=== PATIENT | male | born 1950 | race African-American/Black ===

== ENCOUNTER 2020-07-12 18:59 | Inpatient (IN) | payer OTHER ==
--- NOTE | 2020-07-12 19:29 | BHS.RME ---
Substance Use & Tx History - Substance Use History Alcohol Substance amount: 2 can of beer Frequency of use: More than 3 times per week Substance route: Oral Date of Last Use: 06/28/20 - Last Treatment Where was last treatment: Rehab Physical/Psych/Mental Status - Behavior Eye Contact: Normal - Cooperativeness Cooperativeness: Cooperative - Thinking Thought Processes: Logical - Physical Health Problems Is patient presently having any pain?: No Does patient presently have any injuries (include location): No Does patient currently have a fever: No Is patient : No CIWA Nausea/Vomitin-No Nausea/No Vomiting Muscle Tremors: None Anxiety: 0-No Anxiety, at Ease Agitation: 0-Normal Activity Paroxysmal Sweats: No Perspiration Orientation: 0-Oriented Tacttile Disturbances: 0-None Auditory Disturbances: 0-None Visual Disturbances: 0-None Treatment Recommendation - Level of Care Level of Care: Opioid Treatment Program (OTP) (Rehab. SARS -COV-2 done on indicates not detected)
[2020-07-12 19:34] VITALS: BMI 23.8
--- NOTE | 2020-07-12 19:39 | HP ---
CIWA Score Nausea/Vomitin-No Nausea/No Vomiting Muscle Tremors: None Anxiety: 0-No Anxiety, at Ease Agitation: 0-Normal Activity Paroxysmal Sweats: No Perspiration Orientation: 0-Oriented Tacttile Disturbances: 0-None Auditory Disturbances: 0-None Visual Disturbances: 0-None - Admission Criteria OASAS Guidelines: Admission for Medically Managed Detox: Requires at least one of the followin. CIWA greater than 12 2. Seizures within the past 24 hours 3. Delirium tremens within the past 24 hours 4. Hallucinations within the past 24 hours 5. Acute intervention needed for co occurring medical disorder 6. Acute intervention needed for co occurring psychiatric disorder 7. Severe withdrawal that cannot be handled at a lower level of care (continued vomiting, continued diarrhea, abnormal vital signs) requiring intravenous medication and/or fluids 8. Admitting History and Physical - Admission History of Present Illness: Patient is a 69 y.o. M PMHx HTN, liver cirrhosis, partial prostatectomy, treated Hep C presenting to [facility] for rehab. Patient was examined in the room and is in no acute distress. Patients most recent substance use consists of alcohol 2 beers last week but had not drank for years prior. History Source: Patient Limitations to Obtaining History: No Limitations - Past Medical History PROCEDURES RN: No: Seizure Cardiovascular: Yes: HTN. No: Hyperlipdemia Pulmonary: No: Asthma Gastrointestinal: No: GERD, GI Bleed Hepatobiliary: Yes: Cirrhosis, Hepatitis C (treated) Infectious Disease: No: HIV, STD's, Tuberculosis Psych: No: Anxiety, Bipolar - Past Surgical History Past Surgical History: Yes: Prostatectomy - Smoking History Have you smoked in the past 12 months: No - Alcohol/Substance Use Hx Alcohol Use: No History of Substance Use: reports: None - Social History Usual Living Arrangement: Yes: Alone ADL: Independent History of Recent Travel: No Admission ROS [facility] Exam Limitations: No Limitations - Ebola screening Have you traveled outside of the country in the last 21 days: No Have you had contact with anyone from an Ebola affected area: No Have you been sick,other than usual withdrawal symptoms: No Do you have a fever: No - Review of Systems Constitutional: No Symptoms Reported EENT: denies: Blurred Vision, Double Vision Respiratory: denies: Cough, Shortness of Breath Cardiac: denies: Chest Pain, Lightheadedness GI: denies: Constipated, Diarrhea, Nausea, Vomiting : reports: Incontinence. denies: Burning, Dysuria Musculoskeletal: denies: Muscle Pain, Muscle Weakness Neuro: denies: Headache, Dizziness Hematology: denies: Easy Bleeding Psychiatric: reports: No Sypmtoms Reported, Judgement Intact, Mood/Affect Appropiate, Orientated x3 Patient History - Smoking Cessation Smoking history: Former smoker Have you smoked in the past 12 months: No Initiated information on smoking cessation: Yes 'Breaking Loose' booklet given: 07/12/20 Admission Physical Exam [facility] - Vital Signs Vital Signs: Vital Signs - 24 hr 07/12/20 19:32 Temperature 97.3 F L Pulse Rate 56 L Respiratory 17 Rate Blood Pressure 141/86 - Physical General Appearance: Yes: Within Normal Limits, No Apparent Distress, Nourished, Appropriately Dressed Respiratory: Yes: Within Normal Limits, Lungs Clear, Normal Breath Sounds, No Respiratory Distress, No Accessory Muscle Use Cardiology: Yes: Within Normal Limits, Regular Rhythm, Regular Rate. No: JVD, Murmur Abdominal: Yes: Within Normal Limits, Normal Bowel Sounds, Non Tender, Flat, Soft. No: Tenderness Back: Yes: Within Normal Limits, Normal Inspection. No: CVA Tenderness Extremities: Yes: Within Normal Limits, Normal Inspection, Normal Range of Motion, Non-Tender Neurological: Yes: Within Normal Limits, Fully Oriented, Alert, Normal Mood/Affect, Normal Response Integumentary: Yes: Within Normal Limits, Normal Color, Dry, Warm - Diagnostic (1) Hypertension Current Visit: Yes Status: Acute (2) Cirrhosis of liver Current Visit: Yes Status: Acute (3) Incontinence Current Visit: Yes Status: Acute Cleared for Admission [facility] - Detox or Rehab [facility] Level of Care: Medically Managed Detox Regimen/Protocol: Not Applicable Claeared for Rehab Admission: Yes Breathalyzer - Breathalyzer Breathalyzer: 0 Vital Signs - Vital Signs Vital signs refused: No Temperature: 97.3 F Pulse Rate: 56 Respiratory Rate: 17 Blood Pressure: 141/86 - Height Height: 1.65 m - Weight Weight: 64.864 kg - BMI Body Mass Index (BMI): 23.8 Urine Drug Screen - Test Device Lot number: [id number] Expiration date: 05/29/22 - Control Is test valid?: Yes - Results Drug screen NEGATIVE: No Urine drug screen results: BZO-Benzodiazepines Inpatient Rehab Admission - Rehab Decision to Admit Inpatient rehab admission?: Yes - Initial Determination Are CD services needed?: Yes Free of communicable disease: Yes Not in need of hospitalization: Yes - Rehab Admission Criteria Previous failed treatment: Yes Poor recovery environment: Yes Comorbidities: Yes Lacks judgement: Yes Patient is meeting Inpatient Rehab admission criteria:: Yes
--- OUTSIDE RECORDS SUMMARY | 2020-07-12 19:43 | XMS ---
:1950 Author Organization [facility] Support Name Relationship Address Phone UE Unavailable Unavailable Unavailable BEATRIS DAMIAN (PUTTY TINTER MAKER) OTHER RELATIONSHIP [address] [place] [address] Re-disclosure Warning The records that you are about to access may contain information from federally- assisted alcohol or drug abuse programs. If such information is present, then the following federally mandated warning applies: This information has been disclosed to you from records protected by federal confidentiality rules (42 CFR part 2). The federal rules prohibit you from making any further disclosure of this information unless further disclosure is expressly permitted by the written consent of the person to whom it pertains or as otherwise permitted by 42 CFR part 2. A general authorization for the release of medical or other information is NOT sufficient for this purpose. The Federal rules restrict any use of the information to criminally investigate or prosecute any alcohol or drug abuse patient.The records that you are about to access may contain highly sensitive health information, the redisclosure of which is protected by Article 27-F of the [facility] Public Health law. If you continue you may haveaccess to information: Regarding HIV / AIDS; Provided by facilities licensed or operated by the [facility] Office of Mental Health; or Provided by the [facility] Office for People With Developmental Disabilities. If such information is present, then the following [facility] mandated warning applies: This information has been disclosed to you from confidential records which are protected by state law. State law prohibits you from making any further disclosure of this information without the specific written consent of the person to whom it pertains, or as otherwise permitted by law. Any unauthorized further disclosure in violation of state law may result in a fine or nursing home sentence or both. A general authorization for the release of medical or other information is NOT sufficient authorization for further disclosure. Insurance Providers Payer name Policy type Policy ID Covered Covered republican's Policy P cosme / Coverage republican ID relationship to [place] Inf ormation type [place] [id number] SP [id number] MEDICARE [id number] SP [id number] 31 1 Results ID Date Data Source [id number] 07/03/2020 01:15:00 PM EDT [facility] Name Value Range Interpretation Description Data Sup porting Code Source(s) Document(s ) SARS [facility] coronavirus 2 RNA This lab was ordered by [facility] ct [facility] and reported by [facility]. ID Date Data Source [id number] 06/14/2020 07:38:00 PM EDT [facility] Name Value Range Interpretation Code Description Data Jamee rce(s) Supporting Document(s ) Overall [facility] Result: This lab was ordered by [facility] and reported by [facility]. Procedure
[2020-07-12] MEDS ORDERED: MAGNESIUM CITRATE 300 ML BOTTLE PO PRN (19:44)
[2020-07-12] MEDS ORDERED: P-EPHED 60MG/TRIPROLIDI 2.5MG TABLET PO PRN (19:44)
[2020-07-12] MEDS ORDERED: guaiFENesin 200 MG/10 ML 10 ML UNIT-DOSE CUPS PO PRN (19:44)
[2020-07-12] MEDS ORDERED: MAGNESIUM HYDROX 2400MG/30ML ORAL SUSPENSION 30 ML CUP PO PRN (19:44)
[2020-07-12] MEDS ORDERED: MAG HYDROX/AL HYDROX/SIMETH 30 ML UNIT-DOSE CUP PO PRN (19:44)
[2020-07-12] MEDS ORDERED: NICOTINE POLACRILEX 2 MG GUM BC PRN (19:44)
[2020-07-12] MEDS ORDERED: LOPERAMIDE HCL 2 MG CAPSULE PO PRN (19:44)
--- OUTSIDE RECORDS SUMMARY | 2020-07-12 20:40 | XMS ---
:1950 Author Organization [facility] Support Name Relationship Address Phone UE Unavailable Unavailable Unavailable DAMIAN, BEATRIS (ENVIRONMENTAL MARKETER) OTHER RELATIONSHIP [address] [place] [address] Re-disclosure Warning The records that you are [...] is protected by Article 27-F of the [facility] Public Health law. If you continue you may haveaccess to information: Regarding HIV / AIDS; Provided by facilities licensed or operated by the [facility] Office of Mental Health; or Provided by the [facility] Office for People With Developmental Disabilities. If such information is present, then the following [facility] mandated warning applies: This information has been [...] law may result in a fine or detention sentence or both. A general authorization for the release of medical or other information is NOT sufficient authorization for further disclosure. Insurance Providers Payer name Policy type Policy ID Covered Covered green party's Policy P cosme / Coverage green party ID relationship to [place] Inf ormation type [place] [id number] SP [id number] MEDICARE [id number] SP [id number] 31 1 Results ID Date Data Source [id number] 07/03/2020 01:15:00 PM EDT [facility] Name Value Range Interpretation Description Data Sup porting Code Source(s) Document(s ) SARS [facility] coronavirus 2 RNA This lab was ordered by [facility] Ac ct [facility] and reported by [facility]. ID Date Data Source [id number] 06/14/2020 07:38:00 PM EDT [facility] Name Value Range Interpretation Code Description Data Jamee rce(s) Supporting Document(s ) Overall [facility] Result: This lab was ordered by [facility] and reported by [facility]. Procedure
[2020-07-12] MEDS ORDERED: TUBERCULIN PPD 5 TU/0.1ML VIAL ID ONE (20:41)
--- NOTE | 2020-07-12 21:05 | PN ---
BHS Progress Note Note: EKG notes NSR , septal infarct, age undetermined, ST & Marked T-wave abnormality , consider anterolateral ischemia . Pt is asymptomatic . Vital Signs - 24 hr 07/12/20 07/12/20 07/12/20 19:32 19:44 20:03 Temperature 97.3 F L 97.3 F L 97.3 F L Pulse Rate 56 L 56 L 56 L Respiratory 17 17 17 Rate Blood Pressure 141/86 141/86 141/86 Per MR , pt had cardiac evaluation @ [facility] telemetry ECHO 07/05/2020 : LVH with normal systolic function , EF 65-70 % grade 2 diastolic dysfunction , mild MR CXR 07/04/2020 Normal Myocardial perfusion scan 07/06/2020 : normal EKG on admission 07/04/2020 : Sinus rhythm , T- inversion leads II, III, aVF , V4-6 , troponin 0.01, Serial EKGs no new changes , Troponin trended 0.01-0.01-0.06-0.05 . Nuclear stress test normal. Advised to f/up w/ PMD and cardiology upon d/c .
[2020-07-12] MEDS: THIAMINE HCL 100 MG TABLET (FP) PO SCH (21:47)
[2020-07-12] MEDS: MELATONIN 5 MG TABLETS PO SCH (21:47)
[2020-07-12] MEDS: hydrOXYzine PAMOATE 25 MG CAPSULE (FP) PO SCH (21:47)
[2020-07-13] MEDS: hydrOXYzine PAMOATE 25 MG CAPSULE (FP) PO SCH ×5 (06:51→21:42)
[2020-07-13] MEDS: PRENATAL VITAMINS W/ FOLIC ACID TABLET (FP) PO SCH (10:01)
[2020-07-13] MEDS: NICOTINE 7 MG/24 HOURS TOPICAL PATCH TD SCH (10:02)
[2020-07-13 10:43] LABS: HEMATOCRIT 39.1 % (35.4-49); HEMOGLOBIN 12.8 GM/dL (11.7-16.9); MCH 33.6 pg (25.7-33.7); MCHC 32.7 g/dl (32.0-35.9); MEAN CELL VOLUME 102.5 fl (80-96); MEAN PLT VOLUME 11.5 fl (7.5-11.1); PLATELET COUNT 122 K/MM3 (134-434); RBC 3.82 M/mm3 (4.00-5.60); RDW 13.8 % (11.9-15.9); WHITE BLOOD COUNT 8.2 K/mm3 (4.0-10.0)
[2020-07-13] MEDS: amLODIPine BESYLATE 5 MG TABLET (FP) PO SCH (10:45)
[2020-07-13 10:55] LABS: ALBUMIN 3.2 g/dl (3.4-5.0); BILIRUBIN,TOTAL 0.6 mg/dL (0.2-1); BLOOD UREA NITROGEN 18.1 mg/dL (7-18); CALCIUM 8.8 mg/dL (8.5-10.1); CREATININE 1.3 mg/dL (0.55-1.3); POTASSIUM 4.4 mmol/L (3.5-5.1); TOT PROT 7.5 g/dl (6.4-8.2)
[2020-07-13 11:04] LABS: SICKLE CELL SCREEN NEGATIVE (NEGATIVE)
--- NOTE | 2020-07-13 12:43 | EKG ---
Test Reason : Blood Pressure : / mmHG Vent. Rate : 067 BPM Atrial Rate : 067 BPM P-R Int : 138 ms QRS Dur : 086 ms QT Int : 414 ms P-R-T Axes : 046 019 -80 degrees QTc Int : 437 ms NORMAL SINUS RHYTHM SEPTAL INFARCT , AGE UNDETERMINED CLINICAL CORRELATION IS RECOMMENDED NO PREVIOUS ECGS AVAILABLE Confirmed by DESTINY KRUEGER MD ([id number]) on 07/13/2020 12:43:28 PM Referred By: Confirmed By:DESTINY KRUEGER MD
[2020-07-13 14:06] LABS: EPI CELLS 7 /uL (0-25.1); HYALINE CASTS 0 /uL (0-3.1); PH,URINE 5.5 (5.0-8.0); URINE APPEARANCE CLEAR; URINE BACTERIA 57 /uL (0-1359); URINE BILIRUBIN NEGATIVE (NEGATIVE); URINE COLOR YELLOW; URINE GLUCOSE (UA) NEGATIVE (NEGATIVE); URINE KETONE NEGATIVE (NEGATIVE); URINE LEUK ESTERASE TRACE (NEGATIVE); URINE NITRITE NEGATIVE (NEGATIVE); URINE PROTEIN NEGATIVE (NEGATIVE); URINE RBC 2 /uL (0-23.9); URINE UROBILINOGEN 0.2 mg/dL (0.2-1.0); URINE WBC 65 /uL (0-25.8)
[2020-07-13] MEDS: MELATONIN 5 MG TABLETS PO SCH (21:41)
[2020-07-13] MEDS: THIAMINE HCL 100 MG TABLET (FP) PO SCH (21:41)
[2020-07-14] MEDS: hydrOXYzine PAMOATE 25 MG CAPSULE (FP) PO SCH ×5 (06:37→21:09)
[2020-07-14] MEDS: amLODIPine BESYLATE 5 MG TABLET (FP) PO SCH (10:01)
[2020-07-14] MEDS: NICOTINE 7 MG/24 HOURS TOPICAL PATCH TD SCH (10:01)
[2020-07-14] MEDS: PRENATAL VITAMINS W/ FOLIC ACID TABLET (FP) PO SCH (10:01)
[2020-07-14] MEDS: MELATONIN 5 MG TABLETS PO SCH (21:09)
[2020-07-14] MEDS: THIAMINE HCL 100 MG TABLET (FP) PO SCH (21:09)
[2020-07-15] MEDS: hydrOXYzine PAMOATE 25 MG CAPSULE (FP) PO SCH ×5 (06:43→21:40)
[2020-07-15] MEDS: PRENATAL VITAMINS W/ FOLIC ACID TABLET (FP) PO SCH (09:41)
[2020-07-15] MEDS: NICOTINE 7 MG/24 HOURS TOPICAL PATCH TD SCH (09:41)
[2020-07-15] MEDS: amLODIPine BESYLATE 5 MG TABLET (FP) PO SCH (09:41)
[2020-07-15] MEDS: ACETAMINOPHEN 325 MG TABLET (FP) PO PRN (09:41)
[2020-07-15] MEDS: THIAMINE HCL 100 MG TABLET (FP) PO SCH (21:40)
[2020-07-15] MEDS: MELATONIN 5 MG TABLETS PO SCH (21:40)
[2020-07-15] MEDS: IBUPROFEN 400 MG TABLET (FP) PO PRN (21:41)
[2020-07-16] MEDS: hydrOXYzine PAMOATE 25 MG CAPSULE (FP) PO SCH ×5 (06:36→21:11)
[2020-07-16] MEDS: ACETAMINOPHEN 325 MG TABLET (FP) PO PRN (06:37)
--- NOTE | 2020-07-16 08:22 | PN ---
Teaching Attending Note Name of Resident: Delvis Mohan ATTENDING PHYSICIAN STATEMENT I saw and evaluated the patient. I reviewed the resident's note and discussed the case with the resident. I agree with the resident's findings and plan as documented. SUBJECTIVE: OBJECTIVE: ASSESSMENT AND PLAN: Agree with resident's findings and agree with plan for detox.
[2020-07-16] MEDS: PRENATAL VITAMINS W/ FOLIC ACID TABLET (FP) PO SCH (10:03)
[2020-07-16] MEDS: amLODIPine BESYLATE 5 MG TABLET (FP) PO SCH (10:03)
[2020-07-16] MEDS: NICOTINE 7 MG/24 HOURS TOPICAL PATCH TD SCH (10:04)
--- NOTE | 2020-07-16 14:56 | PN ---
[facility] Progress Note Note: Patient c/o left ear ache x one day. Denies sore throat, cough, headache and fever. Vital Signs Temperature 96.5 F L 07/16/20 08:24 Pulse Rate 64 07/16/20 08:24 Respiratory Rate 18 07/16/20 08:24 Blood Pressure 123/72 07/16/20 08:24 O2 Sat by Pulse Oximetry (%) 96 07/16/20 06:34 Laboratory Tests 07/13/20 07/13/20 07/13/20 08:00 08:00 08:00 WBC 8.2 RBC 3.82 L Hgb 12.8 Hct 39.1 MCV 102.5 H MCH 33.6 MCHC 32.7 RDW 13.8 Plt Count 122 L MPV 11.5 H Sickle Cell Screen Negative Sodium 138 Potassium 4.4 Chloride 104 Carbon Dioxide 31 Anion Gap 3 L BUN 18.1 H Creatinine 1.3 Est GFR (CKD-EPI)AfAm 65.44 Est GFR (CKD-EPI)NonAf 56.46 Random Glucose 145 H Calcium 8.8 Total Bilirubin 0.6 AST 36 ALT 61 Alkaline Phosphatase 79 Total Protein 7.5 Albumin 3.2 L Urine Color Urine Appearance Urine pH Ur Specific [place] Urine Protein Urine Glucose (UA) Urine Ketones Urine Blood Urine Nitrite Urine Bilirubin Urine Urobilinogen Ur Leukocyte Esterase Urine WBC (Auto) Urine RBC (Auto) Urine Casts (Auto) U Epithel Cells (Auto) Urine Bacteria (Auto) Syphilis Serology Non-reactive 07/13/20 11:30 WBC RBC Hgb Hct MCV MCH MCHC RDW Plt Count MPV Sickle Cell Screen Sodium Potassium Chloride Carbon Dioxide Anion Gap BUN Creatinine Est GFR (CKD-EPI)AfAm Est GFR (CKD-EPI)NonAf Random Glucose Calcium Total Bilirubin AST ALT Alkaline Phosphatase Total Protein Albumin Urine Color Yellow Urine Appearance Clear Urine pH 5.5 Ur Specific [place] 1.014 Urine Protein Negative Urine Glucose (UA) Negative Urine Ketones Negative Urine Blood Negative Urine Nitrite Negative Urine Bilirubin Negative Urine Urobilinogen 0.2 Ur Leukocyte Esterase Trace Urine WBC (Auto) 65 Urine RBC (Auto) 2 Urine Casts (Auto) 0 U Epithel Cells (Auto) 7 Urine Bacteria (Auto) 57 Syphilis Serology PE alert and oriented x 3 skin warm and dry right ear canal with cerumen, tm mildly inflamed left ear canal with cerumen, tm inflamed and tender to touch(limited exam due to pain) a/p: OTITIS MEDIA, AU will start Ofloxacin ear drops to both ears TID x 7 days continue motrin for pain prn as ordered monitor clinically
[2020-07-16] MEDS: IBUPROFEN 400 MG TABLET (FP) PO PRN (19:02)
[2020-07-16] MEDS: OFLOXACIN 0.3% OTIC SOLUTION 5 ML BOTTLE AU SCH (21:11)
[2020-07-16] MEDS: MELATONIN 5 MG TABLETS PO SCH (21:11)
[2020-07-16] MEDS: THIAMINE HCL 100 MG TABLET (FP) PO SCH (21:11)
[2020-07-17] MEDS: hydrOXYzine PAMOATE 25 MG CAPSULE (FP) PO SCH ×5 (06:32→21:42)
[2020-07-17] MEDS: OFLOXACIN 0.3% OTIC SOLUTION 5 ML BOTTLE AU SCH ×3 (06:58→21:42)
[2020-07-17] MEDS: PRENATAL VITAMINS W/ FOLIC ACID TABLET (FP) PO SCH (10:36)
[2020-07-17] MEDS: amLODIPine BESYLATE 5 MG TABLET (FP) PO SCH (10:36)
[2020-07-17] MEDS: NICOTINE 7 MG/24 HOURS TOPICAL PATCH TD SCH (10:44)
[2020-07-17] MEDS: MELATONIN 5 MG TABLETS PO SCH (21:42)
[2020-07-17] MEDS: THIAMINE HCL 100 MG TABLET (FP) PO SCH (21:42)
[2020-07-18] MEDS: OFLOXACIN 0.3% OTIC SOLUTION 5 ML BOTTLE AU SCH ×3 (06:46→21:04)
[2020-07-18] MEDS: hydrOXYzine PAMOATE 25 MG CAPSULE (FP) PO SCH ×5 (06:46→21:04)
[2020-07-18] MEDS: amLODIPine BESYLATE 5 MG TABLET (FP) PO SCH (10:07)
[2020-07-18] MEDS: PRENATAL VITAMINS W/ FOLIC ACID TABLET (FP) PO SCH (10:07)
[2020-07-18] MEDS: NICOTINE 7 MG/24 HOURS TOPICAL PATCH TD SCH (10:09)
[2020-07-18] MEDS: MELATONIN 5 MG TABLETS PO SCH (21:04)
[2020-07-18] MEDS: THIAMINE HCL 100 MG TABLET (FP) PO SCH (21:04)
[2020-07-19] MEDS: OFLOXACIN 0.3% OTIC SOLUTION 5 ML BOTTLE AU SCH ×3 (06:00→21:43)
[2020-07-19] MEDS: hydrOXYzine PAMOATE 25 MG CAPSULE (FP) PO SCH ×5 (06:00→21:42)
[2020-07-19] MEDS: PRENATAL VITAMINS W/ FOLIC ACID TABLET (FP) PO SCH (10:15)
[2020-07-19] MEDS: amLODIPine BESYLATE 5 MG TABLET (FP) PO SCH (10:15)
[2020-07-19] MEDS: NICOTINE 7 MG/24 HOURS TOPICAL PATCH TD SCH (10:15)
--- NOTE | 2020-07-19 13:50 | CONSULT ---
[facility] Psychiatric Consult - Data Date of interview: 07/19/20 Admission source: [facility] Identifying data: Mr Dai is a 69 years old single Black male, retired receiving social security, living in an SRO in the [place] admitted on 07/12/20 for inpatient rehabilitation treatment for alcohol Substance Abuse History: Reports history of alcohol use. Refer to addiction counselor's summary for further information Medical History: Significant for bronchial asthma, hypertension, cirrhosis of the liver, history of treatment for hepatitis cC and TURP. Smokes 10 cigarettes daily Psychiatric History: This is patient's first admission to this facility. He denies histoty of previous psychiatric treatment. However, reports being prescribed Trazadone 100 mg/hs for insomnia by his primary care physician at the [facility]. Denies previous psychiatric hospitalization or suicidal attempt. At present, reports sleeping poorly Physical/Sexual Abuse/Trauma History: Denies history of abuse as a child or DV relationship as an adult Mental Status Exam - Mental Status Exam Alert and Oriented to: Time (August 17, 1969), Place ([place]), Person Cognitive Function: Fair Patient Appearance: Well Groomed Mood: Hopeful, Euthymic Affect: Appropriate Patient Behavior: Cooperative Speech Pattern: Clear Voice Loudness: Normal Thought Process: Intact, Goal Oriented Thought Disorder: Not Present Hallucinations: Denies Suicidal Ideation: Denies Homicidal Ideation: Denies Insight/Judgement: Fair Sleep: Poorly Appetite: Good Muscle strength/Tone: Normal Gait/Station: Normal Psychiatric Findings - Problem List ([place] 1, 2,3) (1) Alcohol-induced sleep disorder Current Visit: Yes Status: Acute (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 2) Continue inpatient detoxification
[2020-07-19] MEDS: THIAMINE HCL 100 MG TABLET (FP) PO SCH (21:42)
[2020-07-19] MEDS: MELATONIN 5 MG TABLETS PO SCH (21:42)
[2020-07-19] MEDS: traZODone HCL 100 MG TABLET (FP) PO SCH (21:43)
[2020-07-20] MEDS ORDERED: PT OWN MED DRAWER 7, Y5N ONE ×2 (03:07→09:26)
[2020-07-20] MEDS: OFLOXACIN 0.3% OTIC SOLUTION 5 ML BOTTLE AU SCH ×3 (06:09→22:02)
[2020-07-20] MEDS: hydrOXYzine PAMOATE 25 MG CAPSULE (FP) PO SCH ×5 (06:09→22:02)
[2020-07-20] MEDS: PRENATAL VITAMINS W/ FOLIC ACID TABLET (FP) PO SCH (09:55)
[2020-07-20] MEDS: NICOTINE 7 MG/24 HOURS TOPICAL PATCH TD SCH (09:56)
[2020-07-20] MEDS: amLODIPine BESYLATE 5 MG TABLET (FP) PO SCH (09:56)
[2020-07-20] MEDS: THIAMINE HCL 100 MG TABLET (FP) PO SCH (22:02)
[2020-07-20] MEDS: traZODone HCL 100 MG TABLET (FP) PO SCH (22:02)
[2020-07-20] MEDS: MELATONIN 5 MG TABLETS PO SCH (22:03)
[2020-07-21] MEDS: OFLOXACIN 0.3% OTIC SOLUTION 5 ML BOTTLE AU SCH ×3 (06:00→21:10)
[2020-07-21] MEDS: hydrOXYzine PAMOATE 25 MG CAPSULE (FP) PO SCH ×5 (06:10→21:11)
[2020-07-21] MEDS: PRENATAL VITAMINS W/ FOLIC ACID TABLET (FP) PO SCH (09:58)
[2020-07-21] MEDS: amLODIPine BESYLATE 5 MG TABLET (FP) PO SCH (09:58)
[2020-07-21] MEDS: NICOTINE 7 MG/24 HOURS TOPICAL PATCH TD SCH (09:59)
[2020-07-21] MEDS: traZODone HCL 100 MG TABLET (FP) PO SCH (21:10)
[2020-07-21] MEDS: MELATONIN 5 MG TABLETS PO SCH (21:11)
[2020-07-21] MEDS: THIAMINE HCL 100 MG TABLET (FP) PO SCH (21:11)
[2020-07-22] MEDS: hydrOXYzine PAMOATE 25 MG CAPSULE (FP) PO SCH ×5 (06:26→21:24)
[2020-07-22] MEDS: OFLOXACIN 0.3% OTIC SOLUTION 5 ML BOTTLE AU SCH ×3 (06:27→21:24)
[2020-07-22] MEDS: NICOTINE 7 MG/24 HOURS TOPICAL PATCH TD SCH (10:05)
[2020-07-22] MEDS: PRENATAL VITAMINS W/ FOLIC ACID TABLET (FP) PO SCH (10:05)
[2020-07-22] MEDS: amLODIPine BESYLATE 5 MG TABLET (FP) PO SCH (10:05)
[2020-07-22] MEDS: THIAMINE HCL 100 MG TABLET (FP) PO SCH (21:24)
[2020-07-22] MEDS: MELATONIN 5 MG TABLETS PO SCH (21:24)
[2020-07-22] MEDS: traZODone HCL 100 MG TABLET (FP) PO SCH (21:24)
[2020-07-23] MEDS: hydrOXYzine PAMOATE 25 MG CAPSULE (FP) PO SCH ×5 (06:26→21:36)
[2020-07-23] MEDS: OFLOXACIN 0.3% OTIC SOLUTION 5 ML BOTTLE AU SCH ×2 (06:27→14:24)
[2020-07-23] MEDS: NICOTINE 7 MG/24 HOURS TOPICAL PATCH TD SCH (09:42)
[2020-07-23] MEDS: PRENATAL VITAMINS W/ FOLIC ACID TABLET (FP) PO SCH (09:42)
[2020-07-23] MEDS: amLODIPine BESYLATE 5 MG TABLET (FP) PO SCH (09:42)
[2020-07-23] MEDS: THIAMINE HCL 100 MG TABLET (FP) PO SCH (21:36)
[2020-07-23] MEDS: traZODone HCL 100 MG TABLET (FP) PO SCH (21:36)
[2020-07-23] MEDS: MELATONIN 5 MG TABLETS PO SCH (21:36)
[2020-07-24] MEDS: hydrOXYzine PAMOATE 25 MG CAPSULE (FP) PO SCH ×5 (06:16→21:04)
[2020-07-24] MEDS: NICOTINE 7 MG/24 HOURS TOPICAL PATCH TD SCH (09:33)
[2020-07-24] MEDS: amLODIPine BESYLATE 5 MG TABLET (FP) PO SCH (09:33)
[2020-07-24] MEDS: PRENATAL VITAMINS W/ FOLIC ACID TABLET (FP) PO SCH (09:33)
[2020-07-24] MEDS: MELATONIN 5 MG TABLETS PO SCH (21:04)
[2020-07-24] MEDS: THIAMINE HCL 100 MG TABLET (FP) PO SCH (21:04)
[2020-07-24] MEDS: traZODone HCL 100 MG TABLET (FP) PO SCH (21:04)
[2020-07-25] MEDS: hydrOXYzine PAMOATE 25 MG CAPSULE (FP) PO SCH ×5 (06:10→22:03)
[2020-07-25] MEDS: amLODIPine BESYLATE 5 MG TABLET (FP) PO SCH (09:41)
[2020-07-25] MEDS: PRENATAL VITAMINS W/ FOLIC ACID TABLET (FP) PO SCH (09:41)
[2020-07-25] MEDS: NICOTINE 7 MG/24 HOURS TOPICAL PATCH TD SCH (09:42)
[2020-07-25] MEDS: traZODone HCL 100 MG TABLET (FP) PO SCH (22:03)
[2020-07-25] MEDS: MELATONIN 5 MG TABLETS PO SCH (22:03)
[2020-07-25] MEDS: THIAMINE HCL 100 MG TABLET (FP) PO SCH (22:03)
[2020-07-26] MEDS: hydrOXYzine PAMOATE 25 MG CAPSULE (FP) PO SCH ×5 (07:05→21:15)
[2020-07-26] MEDS: NICOTINE 7 MG/24 HOURS TOPICAL PATCH TD SCH (09:37)
[2020-07-26] MEDS: amLODIPine BESYLATE 5 MG TABLET (FP) PO SCH (09:37)
[2020-07-26] MEDS: PRENATAL VITAMINS W/ FOLIC ACID TABLET (FP) PO SCH (09:37)
--- NOTE | 2020-07-26 14:23 | PN ---
[facility] Progress Note Note: Patient is scheduled for discharge tomorrow. Script for 30 days supply of Trazadone 100 mg/hs will be electronically transmitted to [facility], [address] [place] [id number]
[2020-07-26] MEDS: THIAMINE HCL 100 MG TABLET (FP) PO SCH (21:14)
[2020-07-26] MEDS: traZODone HCL 100 MG TABLET (FP) PO SCH (21:14)
[2020-07-26] MEDS: IBUPROFEN 400 MG TABLET (FP) PO PRN (21:15)
[2020-07-26] MEDS: MELATONIN 5 MG TABLETS PO SCH (21:15)
[2020-07-27] MEDS: hydrOXYzine PAMOATE 25 MG CAPSULE (FP) PO SCH (06:49)
[2020-07-27 06:50] VITALS: TEMP 97.9
[2020-07-27 09:03] VITALS: BP 158/88; PULSE 81
[2020-07-27] MEDS: PRENATAL VITAMINS W/ FOLIC ACID TABLET (FP) PO SCH (09:19)
[2020-07-27] MEDS: amLODIPine BESYLATE 5 MG TABLET (FP) PO SCH (09:19)
[2020-07-27] MEDS: NICOTINE 7 MG/24 HOURS TOPICAL PATCH TD SCH (09:21)
--- NOTE | 2020-07-27 09:27 | DS ---
[facility] Rehab Discharge Summary - [facility] Rehab Discharge Summary Admission Date: 07/12/20 Discharge Date: 07/27/20 - History Present History: Alcohol dependence - Discharge Physical Exam Vital Signs: Vital Signs Temperature 97.9 F 07/27/20 05:58 Pulse Rate 81 07/27/20 09:02 Respiratory Rate 18 07/27/20 09:02 Blood Pressure 158/88 07/27/20 09:02 O2 Sat by Pulse Oximetry (%) 96 07/27/20 05:58 Laboratory Tests 07/13/20 07/13/20 07/13/20 08:00 08:00 08:00 WBC 8.2 RBC 3.82 L Hgb 12.8 Hct 39.1 MCV 102.5 H MCH 33.6 MCHC 32.7 RDW 13.8 Plt Count 122 L MPV 11.5 H Sickle Cell Screen Negative Sodium 138 Potassium 4.4 Chloride 104 Carbon Dioxide 31 Anion Gap 3 L BUN 18.1 H Creatinine 1.3 Est GFR (CKD-EPI)AfAm 65.44 Est GFR (CKD-EPI)NonAf 56.46 POC Glucometer Random Glucose 145 H Calcium 8.8 Total Bilirubin 0.6 AST 36 ALT 61 Alkaline Phosphatase 79 Total Protein 7.5 Albumin 3.2 L Urine Color Urine Appearance Urine pH Ur Specific [place] Urine Protein Urine Glucose (UA) Urine Ketones Urine Blood Urine Nitrite Urine Bilirubin Urine Urobilinogen Ur Leukocyte Esterase Urine WBC (Auto) Urine RBC (Auto) Urine Casts (Auto) U Epithel Cells (Auto) Urine Bacteria (Auto) Syphilis Serology Non-reactive 07/13/20 07/17/20 07/18/20 11:30 06:31 06:45 WBC RBC Hgb Hct MCV MCH MCHC RDW Plt Count MPV Sickle Cell Screen Sodium Potassium Chloride Carbon Dioxide Anion Gap BUN Creatinine Est GFR (CKD-EPI)AfAm Est GFR (CKD-EPI)NonAf POC Glucometer 94 159 Random Glucose Calcium Total Bilirubin AST ALT Alkaline Phosphatase Total Protein Albumin Urine Color Yellow Urine Appearance Clear Urine pH 5.5 Ur Specific [place] 1.014 Urine Protein Negative Urine Glucose (UA) Negative Urine Ketones Negative Urine Blood Negative Urine Nitrite Negative Urine Bilirubin Negative Urine Urobilinogen 0.2 Ur Leukocyte Esterase Trace Urine WBC (Auto) 65 Urine RBC (Auto) 2 Urine Casts (Auto) 0 U Epithel Cells (Auto) 7 Urine Bacteria (Auto) 57 Syphilis Serology ROS: PATIENT DENIES SHAKES, SWEATS, CHEST PAIN, SOB, FEVER, COUGH AND ALCOHOL CRAVINGS PE: ALERT AND ORIENTED X 3 SKIN WARM AND DRY EOMS INTACT B/L CAR S1S2, RRR RESP CTA BL EXT FULL ROM, NO TREMORS AMB AD CHAO DENIES SI/HI A/P: ETOH DEPENDENCE PATIENT IS MEDICALLY STABLE FOR D/C AFTERCARE ARRANGED FOR [place] OUTPATIENT TREATMENT PROGRAM IN [facility] - Treatment Discharge Condition: Discharge condition good, Rehabilitated safely, Responded well, Outpatient referral accepted Hospital Course: PATIENT IS DISCHARGED FROM REHAB TODAY FOR ALCOHOL DEPENDENCE. HE IS MEDICALLY STABLE AND DENIES SI/HI. DURING COURSE OF TREATMENT, PATIENT ATTENDED GROUP MEETINGS, ATTENDED 1:1 SESSIONS WITH COUNSELING STAFF AND WAS EVALUATED AND TREATED BY PSYCH TEAM. AFTERCARE ARRANGED FOR [place] OTP. PATIENT MEDICALLY ADVISED TO FOLLOW UP WITH PCP RECOMMENDED AND TO CONTINUE WITH OTP SERVICES TO PREVENT RELAPSE. Ambulatory Orders Amlodipine Besylate 5 mg PO DAILY #14 tablet 07/26/20 traZODone HCL [Trazodone HCl] 100 mg PO HS #30 tablet 07/26/20 - Medication Discharge Medications: Ambulatory Orders Amlodipine Besylate 5 mg PO DAILY #14 tablet 07/26/20 traZODone HCL [Trazodone HCl] 100 mg PO HS #30 tablet 07/26/20 - Medication-Assisted Treatment (MAT) Medication-Assisted Treatment (MAT): No - Discharge Instructions Diet, activity, other medical instructions: Diet: JOHANNA/ REG TOLERATED Activity: AD CHAO Other medical instructions: F/U WITH PCP RECOMMENDED - Follow-up Referral Minutes to complete discharge: 35 - AMA Did Patient Leave Against Medical Advice: No
== END 2020-07-27 09:33 | disposition home or self-care (01) | DRG 895 ==
LOC: YASAS 18:59 → Y3W 20:36
PROVIDERS: ADMIT Allergy & Immunology; ATTEND Allergy & Immunology
PROC: HZ42ZZZ Group Counseling for Substance Abuse Treatment, Cognitive-Behavioral (ICD-10-PCS; principal; 2020-07-12)
DX: F10.282 Alcohol dependence with alcohol-induced sleep disorder (principal); F10.96 Alcohol use, unspecified with alcohol-induced persisting amnestic disorder; F17.210 Nicotine dependence, cigarettes, uncomplicated; I10 Essential (primary) hypertension; K74.60 Unspecified cirrhosis of liver; J45.909 Unspecified asthma, uncomplicated; H92.02 Otalgia, left ear; H61.22 Impacted cerumen, left ear; R32 Unspecified urinary incontinence; Z86.19 Personal history of other infectious and parasitic diseases; Z90.79 Acquired absence of other genital organ(s)
CPT/HCPCS: 36415; 80053; 81003; 82962; 85027; 85660; 86780; 93005; 93010

== ENCOUNTER 2020-11-29 12:54 | Inpatient (IN) | payer OTHER ==
[2020-11-29] MEDS ORDERED: MAG HYDROX/AL HYDROX/SIMETH 30 ML UNIT-DOSE CUP PO PRN (14:37)
[2020-11-29] MEDS ORDERED: NICOTINE POLACRILEX 2 MG GUM BUC PRN (14:37)
[2020-11-29] MEDS ORDERED: ONDANSETRON *ODT* 4 MG TABLET SL PRN (14:37)
[2020-11-29] MEDS ORDERED: MAGNESIUM CITRATE 300 ML BOTTLE PO PRN (14:37)
[2020-11-29] MEDS ORDERED: MENTHOL/PHENOL 1 EACH UD MM PRN (14:37)
[2020-11-29] MEDS ORDERED: LORazepam 1 MG TABLET PO PRN (14:37)
[2020-11-29] MEDS ORDERED: METHOCARBAMOL 500 MG TABLET PO PRN (14:37)
[2020-11-29] MEDS ORDERED: ACETAMINOPHEN 325 MG TABLET (FP) PO PRN ×2 (14:37)
[2020-11-29] MEDS ORDERED: MAGNESIUM HYDROX 2400MG/30ML ORAL SUSPENSION 30 ML CUP PO PRN (14:37)
[2020-11-29] MEDS ORDERED: IBUPROFEN 400 MG TABLET (FP) PO PRN (14:37)
[2020-11-29] MEDS ORDERED: BISMUTH SUBSALICYLATE 262 MG/15 ML BTL PO PRN (14:37)
[2020-11-29 14:39] VITALS: BMI 22.6
[2020-11-29] MEDS: amLODIPine BESYLATE 5 MG TABLET (FP) PO SCH (15:37)
[2020-11-29] MEDS: PRENATAL VITAMINS W/ FOLIC ACID TABLET (FP) PO SCH (15:37)
[2020-11-29 17:13] LABS: HEMATOCRIT 39.6 % (35.4-49); HEMOGLOBIN 13.3 GM/dL (11.7-16.9); MCH 34.1 pg (25.7-33.7); MCHC 33.5 g/dl (32.0-35.9); MEAN CELL VOLUME 101.8 fl (80-96); MEAN PLT VOLUME 11.3 fl (7.5-11.1); PLATELET COUNT 136 K/MM3 (134-434); RBC 3.89 M/mm3 (4.00-5.60); RDW 14.1 % (11.9-15.9); WHITE BLOOD COUNT 7.9 K/mm3 (4.0-10.0)
[2020-11-29 17:15] LABS: POTASSIUM 4.4 mmol/L (3.5-5.1)
[2020-11-29 17:18] LABS: CALCIUM 8.9 mg/dL (8.5-10.1)
[2020-11-29 17:19] LABS: ALBUMIN 3.4 g/dl (3.4-5.0); BLOOD UREA NITROGEN 16.8 mg/dL (7-18)
[2020-11-29 17:22] LABS: CREATININE 1.4 mg/dL (0.55-1.3)
[2020-11-29 17:24] LABS: BILIRUBIN,TOTAL 1.5 mg/dL (0.2-1); TOT PROT 7.9 g/dl (6.4-8.2)
[2020-11-29] MEDS: hydrOXYzine PAMOATE 25 MG CAPSULE (FP) PO SCH ×2 (17:46→22:04)
[2020-11-29] MEDS: LORazepam 2 MG TABLET PO SCH ×2 (17:47→22:04)
[2020-11-29] MEDS: THIAMINE HCL 100 MG TABLET (FP) PO SCH (22:04)
[2020-11-29] MEDS: MELATONIN 5 MG TABLETS PO SCH (22:04)
[2020-11-29] MEDS: traZODone HCL 100 MG TABLET (FP) PO SCH (22:04)
[2020-11-30] MEDS: hydrOXYzine PAMOATE 25 MG CAPSULE (FP) PO SCH (06:19)
[2020-11-30] MEDS: LORazepam 2 MG TABLET PO SCH ×4 (06:19→22:54)
[2020-11-30] MEDS ORDERED: hydrOXYzine PAMOATE 25 MG CAPSULE (FP) PO PRN (09:24)
[2020-11-30] MEDS: PRENATAL VITAMINS W/ FOLIC ACID TABLET (FP) PO SCH (10:25)
[2020-11-30] MEDS: amLODIPine BESYLATE 5 MG TABLET (FP) PO SCH (10:25)
[2020-11-30] MEDS: MELATONIN 5 MG TABLETS PO SCH (22:53)
[2020-11-30] MEDS: THIAMINE HCL 100 MG TABLET (FP) PO SCH (22:53)
[2020-11-30] MEDS: traZODone HCL 100 MG TABLET (FP) PO SCH (22:54)
[2020-12-01] MEDS: LORazepam 1 MG TABLET PO SCH ×4 (05:19→22:07)
[2020-12-01] MEDS: PRENATAL VITAMINS W/ FOLIC ACID TABLET (FP) PO SCH (10:11)
[2020-12-01] MEDS: amLODIPine BESYLATE 5 MG TABLET (FP) PO SCH (10:12)
[2020-12-01] MEDS ORDERED: FLU VACCINE (FLULAVAL) PF 60 MCG/0.5 ML SYRINGE 2020-2021 IM ONE (12:00)
[2020-12-01] MEDS: traZODone HCL 100 MG TABLET (FP) PO SCH (22:07)
[2020-12-01] MEDS: MELATONIN 5 MG TABLETS PO SCH (22:07)
[2020-12-01] MEDS: THIAMINE HCL 100 MG TABLET (FP) PO SCH (22:07)
[2020-12-02] MEDS ORDERED: LORazepam 0.5 MG TABLET PO PRN
[2020-12-02] MEDS: LORazepam 0.5 MG TABLET PO SCH ×4 (05:20→22:24)
[2020-12-02] MEDS: PRENATAL VITAMINS W/ FOLIC ACID TABLET (FP) PO SCH (10:20)
[2020-12-02] MEDS: amLODIPine BESYLATE 5 MG TABLET (FP) PO SCH (10:20)
[2020-12-02] MEDS: THIAMINE HCL 100 MG TABLET (FP) PO SCH (22:24)
[2020-12-02] MEDS: traZODone HCL 100 MG TABLET (FP) PO SCH (22:24)
[2020-12-02] MEDS: MELATONIN 5 MG TABLETS PO SCH (22:24)
[2020-12-03] MEDS ORDERED: LORazepam 0.5 MG TABLET PO ONE (05:00)
[2020-12-03 09:46] VITALS: BP 113/71; PULSE 72; TEMP 97.7
== END 2020-12-03 10:10 | disposition home or self-care (01) | DRG 897 ==
LOC: YASAS 12:54 → Y3N 14:49
PROVIDERS: ADMIT Allergy & Immunology; ATTEND Allergy & Immunology
PROC: HZ2ZZZZ Detoxification Services for Substance Abuse Treatment (ICD-10-PCS; principal; 2020-11-29)
DX: F10.230 Alcohol dependence with withdrawal, uncomplicated (principal); N17.9 Acute kidney failure, unspecified; F14.10 Cocaine abuse, uncomplicated; F16.10 Hallucinogen abuse, uncomplicated; F17.210 Nicotine dependence, cigarettes, uncomplicated; F10.282 Alcohol dependence with alcohol-induced sleep disorder; F10.26 Alcohol dependence with alcohol-induced persisting amnestic disorder; I12.9 Hypertensive chronic kidney disease with stage 1 through stage 4 chronic kidney disease, or unspecified chronic kidney disease; K70.30 Alcoholic cirrhosis of liver without ascites; B18.2 Chronic viral hepatitis C; N40.1 Benign prostatic hyperplasia with lower urinary tract symptoms; N39.498 Other specified urinary incontinence; R73.9 Hyperglycemia, unspecified; R94.5 Abnormal results of liver function studies; Z56.0 Unemployment, unspecified
CPT/HCPCS: 36415; 80053; 85027; 86780; C9803; G0008; Q2036; U0003

== ENCOUNTER 2021-03-07 09:25 | Inpatient (IN) | payer OTHER ==
[2021-03-07 12:56] VITALS: BMI 21.9
[2021-03-07] MEDS ORDERED: MENTHOL/PHENOL 1 EACH UD MM PRN (13:32)
[2021-03-07] MEDS ORDERED: ACETAMINOPHEN 325 MG TABLET (FP) PO PRN ×2 (13:32)
[2021-03-07] MEDS ORDERED: MAGNESIUM CITRATE 300 ML BOTTLE PO PRN (13:32)
[2021-03-07] MEDS ORDERED: diazePAM 5 MG TABLET PO PRN (13:32)
[2021-03-07] MEDS ORDERED: BISMUTH SUBSALICYLATE 524 MG/30 ML UD PO PRN (13:32)
[2021-03-07] MEDS ORDERED: IBUPROFEN 400 MG TABLET (FP) PO PRN (13:32)
[2021-03-07] MEDS ORDERED: METHOCARBAMOL 500 MG TABLET PO PRN (13:32)
[2021-03-07] MEDS ORDERED: MAGNESIUM HYDROX 2400MG/30ML ORAL SUSPENSION 30 ML CUP PO PRN (13:32)
[2021-03-07] MEDS ORDERED: MAG HYDROX/AL HYDROX/SIMETH 30 ML UNIT-DOSE CUP PO PRN (13:32)
[2021-03-07] MEDS ORDERED: NICOTINE POLACRILEX 2 MG GUM BUC PRN (13:32)
[2021-03-07] MEDS ORDERED: ONDANSETRON *ODT* 4 MG TABLET SL PRN (13:32)
[2021-03-07] MEDS: amLODIPine BESYLATE 5 MG TABLET (FP) PO SCH (15:25)
[2021-03-07] MEDS: hydrOXYzine PAMOATE 25 MG CAPSULE (FP) PO SCH ×3 (15:26→22:40)
[2021-03-07] MEDS: NICOTINE 14 MG/24 HOURS TOPICAL PATCH TD SCH (15:26)
[2021-03-07] MEDS: PRENATAL VITAMINS W/ FOLIC ACID TABLET (FP) PO SCH (15:26)
[2021-03-07 16:26] LABS: CALCIUM 8.7 mg/dL (8.5-10.1); HEMATOCRIT 39.3 % (35.4-49); HEMOGLOBIN 13.3 GM/dL (11.7-16.9); MCH 33.7 pg (25.7-33.7); MCHC 33.7 g/dl (32.0-35.9); MEAN CELL VOLUME 99.9 fl (80-96); MEAN PLT VOLUME 10.9 fl (7.5-11.1); PLATELET COUNT 141 K/MM3 (134-434); RBC 3.93 M/mm3 (4.00-5.60); RDW 13.6 % (11.9-15.9); WHITE BLOOD COUNT 5.4 K/mm3 (4.0-10.0)
[2021-03-07 16:27] LABS: ALBUMIN 3.4 g/dl (3.4-5.0); BLOOD UREA NITROGEN 15.6 mg/dL (7-18)
[2021-03-07 16:30] LABS: CREATININE 1.3 mg/dL (0.55-1.3)
[2021-03-07 16:31] LABS: BILIRUBIN,TOTAL 0.3 mg/dL (0.2-1); TOT PROT 7.8 g/dl (6.4-8.2)
[2021-03-07] MEDS: diazePAM 5 MG TABLET PO SCH ×2 (17:43→22:40)
[2021-03-07] MEDS: MELATONIN 5 MG TABLETS PO SCH (22:40)
[2021-03-07] MEDS: THIAMINE HCL 100 MG TABLET (FP) PO SCH (22:40)
[2021-03-08] MEDS: diazePAM 5 MG TABLET PO SCH ×4 (05:39→22:32)
[2021-03-08] MEDS: hydrOXYzine PAMOATE 25 MG CAPSULE (FP) PO SCH ×5 (05:39→22:32)
[2021-03-08] MEDS: amLODIPine BESYLATE 5 MG TABLET (FP) PO SCH (10:57)
[2021-03-08] MEDS: NICOTINE 14 MG/24 HOURS TOPICAL PATCH TD SCH (10:57)
[2021-03-08] MEDS: PRENATAL VITAMINS W/ FOLIC ACID TABLET (FP) PO SCH (10:57)
[2021-03-08] MEDS ORDERED: MIRTAZAPINE 15 MG TABLET (FP) PO SCH (22:00)
[2021-03-08] MEDS: traZODone HCL 100 MG TABLET (FP) PO SCH (22:32)
[2021-03-08] MEDS: THIAMINE HCL 100 MG TABLET (FP) PO SCH (22:32)
[2021-03-08] MEDS: MELATONIN 5 MG TABLETS PO SCH (22:32)
[2021-03-09] MEDS: diazePAM 5 MG TABLET PO SCH ×3 (05:42→22:30)
[2021-03-09] MEDS: hydrOXYzine PAMOATE 25 MG CAPSULE (FP) PO SCH ×5 (05:42→22:30)
[2021-03-09] MEDS: amLODIPine BESYLATE 5 MG TABLET (FP) PO SCH (10:43)
[2021-03-09] MEDS: PRENATAL VITAMINS W/ FOLIC ACID TABLET (FP) PO SCH (10:43)
[2021-03-09] MEDS: NICOTINE 14 MG/24 HOURS TOPICAL PATCH TD SCH (10:43)
[2021-03-09] MEDS: traZODone HCL 100 MG TABLET (FP) PO SCH (22:30)
[2021-03-09] MEDS: THIAMINE HCL 100 MG TABLET (FP) PO SCH (22:30)
[2021-03-09] MEDS: MELATONIN 5 MG TABLETS PO SCH (22:30)
[2021-03-10] MEDS: hydrOXYzine PAMOATE 25 MG CAPSULE (FP) PO SCH ×5 (05:37→22:41)
[2021-03-10] MEDS: diazePAM 5 MG TABLET PO SCH ×2 (05:38→17:16)
[2021-03-10] MEDS: NICOTINE 14 MG/24 HOURS TOPICAL PATCH TD SCH (10:33)
[2021-03-10] MEDS: PRENATAL VITAMINS W/ FOLIC ACID TABLET (FP) PO SCH (10:33)
[2021-03-10] MEDS: amLODIPine BESYLATE 5 MG TABLET (FP) PO SCH (10:33)
[2021-03-10 14:07] LABS: SARS-CoV-2 NAA Not Detected (Not Detected)
[2021-03-10] MEDS: MELATONIN 5 MG TABLETS PO SCH (22:41)
[2021-03-10] MEDS: traZODone HCL 100 MG TABLET (FP) PO SCH (22:42)
[2021-03-10] MEDS: THIAMINE HCL 100 MG TABLET (FP) PO SCH (23:31)
[2021-03-11] MEDS: hydrOXYzine PAMOATE 25 MG CAPSULE (FP) PO SCH ×3 (05:32→13:57)
[2021-03-11] MEDS ORDERED: diazePAM 5 MG TABLET PO ONE (06:00)
[2021-03-11 06:05] VITALS: TEMP 96.9
[2021-03-11 09:20] VITALS: PULSE 75
[2021-03-11] MEDS: PRENATAL VITAMINS W/ FOLIC ACID TABLET (FP) PO SCH (10:22)
[2021-03-11] MEDS: NICOTINE 14 MG/24 HOURS TOPICAL PATCH TD SCH (10:22)
[2021-03-11] MEDS: amLODIPine BESYLATE 5 MG TABLET (FP) PO SCH (10:22)
[2021-03-11 13:06] VITALS: BP 146/94
== END 2021-03-11 13:41 | disposition home or self-care (01) | DRG 897 ==
LOC: YASAS 09:25 → Y3N 14:05
PROVIDERS: ADMIT Allergy & Immunology; ATTEND Allergy & Immunology
PROC: HZ2ZZZZ Detoxification Services for Substance Abuse Treatment (ICD-10-PCS; principal; 2021-03-07)
DX: F10.230 Alcohol dependence with withdrawal, uncomplicated (principal); F14.20 Cocaine dependence, uncomplicated; F17.210 Nicotine dependence, cigarettes, uncomplicated; F10.282 Alcohol dependence with alcohol-induced sleep disorder; F19.24 Other psychoactive substance dependence with psychoactive substance-induced mood disorder; F43.10 Post-traumatic stress disorder, unspecified; F32.9 Major depressive disorder, single episode, unspecified; I10 Essential (primary) hypertension; K70.30 Alcoholic cirrhosis of liver without ascites; B18.2 Chronic viral hepatitis C; N40.1 Benign prostatic hyperplasia with lower urinary tract symptoms; R32 Unspecified urinary incontinence; Z98.890 Other specified postprocedural states
CPT/HCPCS: 36415; 80053; 85027; 86780; C9803; U0003; U0005

== ENCOUNTER 2021-04-26 13:24 | Inpatient (IN) | payer OTHER ==
[2021-04-26 14:26] VITALS: BMI 22.6
[2021-04-26] MEDS ORDERED: LORazepam 1 MG TABLET PO PRN (20:20)
[2021-04-26] MEDS ORDERED: NICOTINE POLACRILEX 2 MG GUM BUC PRN (20:20)
[2021-04-26] MEDS ORDERED: MAG HYDROX/AL HYDROX/SIMETH 30 ML UNIT-DOSE CUP PO PRN (20:20)
[2021-04-26] MEDS ORDERED: MENTHOL/PHENOL 1 EACH UD MM PRN (20:20)
[2021-04-26] MEDS ORDERED: METHOCARBAMOL 500 MG TABLET PO PRN (20:20)
[2021-04-26] MEDS ORDERED: MAGNESIUM CITRATE 300 ML BOTTLE PO PRN (20:20)
[2021-04-26] MEDS ORDERED: IBUPROFEN 400 MG TABLET (FP) PO PRN (20:20)
[2021-04-26] MEDS ORDERED: ONDANSETRON *ODT* 4 MG TABLET SL PRN (20:20)
[2021-04-26] MEDS ORDERED: MAGNESIUM HYDROX 2400MG/30ML ORAL SUSPENSION 30 ML CUP PO PRN (20:20)
[2021-04-26] MEDS ORDERED: BISMUTH SUBSALICYLATE 524 MG/30 ML PO PRN (20:20)
[2021-04-26] MEDS ORDERED: ACETAMINOPHEN 325 MG TABLET (FP) PO PRN ×2 (20:20)
[2021-04-26] MEDS: MELATONIN 5 MG TABLETS PO SCH (22:22)
[2021-04-26] MEDS: THIAMINE HCL 100 MG TABLET (FP) PO SCH (22:22)
[2021-04-26] MEDS ORDERED: LORazepam 2 MG TABLET ONE (22:23)
[2021-04-26] MEDS: LORazepam 2 MG TABLET PO SCH (22:24)
[2021-04-27] MEDS ORDERED: LORazepam 2 MG TABLET ONE ×2 (05:51→10:28)
[2021-04-27] MEDS: LORazepam 2 MG TABLET PO SCH ×4 (06:36→22:37)
[2021-04-27] MEDS ORDERED: amLODIPine BESYLATE 5 MG TABLET (FP) ONE (10:27)
[2021-04-27] MEDS: amLODIPine BESYLATE 5 MG TABLET (FP) PO SCH (10:31)
[2021-04-27] MEDS: PRENATAL VITAMINS W/ FOLIC ACID TABLET (FP) PO SCH (12:01)
[2021-04-27] MEDS: NICOTINE 14 MG/24 HOURS TOPICAL PATCH TD SCH (12:01)
[2021-04-27] MEDS: THIAMINE HCL 100 MG TABLET (FP) PO SCH (22:35)
[2021-04-27] MEDS: MELATONIN 5 MG TABLETS PO SCH (23:03)
[2021-04-28] MEDS: LORazepam 1 MG TABLET PO SCH ×4 (05:27→22:07)
[2021-04-28] MEDS: NICOTINE 14 MG/24 HOURS TOPICAL PATCH TD SCH (10:23)
[2021-04-28] MEDS: amLODIPine BESYLATE 5 MG TABLET (FP) PO SCH (10:23)
[2021-04-28] MEDS: PRENATAL VITAMINS W/ FOLIC ACID TABLET (FP) PO SCH (10:23)
[2021-04-28] MEDS: traZODone HCL 50 MG TABLET (FP) PO SCH (22:07)
[2021-04-28] MEDS: THIAMINE HCL 100 MG TABLET (FP) PO SCH (22:07)
[2021-04-28] MEDS: MELATONIN 5 MG TABLETS PO SCH (22:08)
[2021-04-29] MEDS ORDERED: LORazepam 0.5 MG TABLET PO PRN
[2021-04-29] MEDS: LORazepam 0.5 MG TABLET PO SCH ×4 (05:52→22:39)
[2021-04-29] MEDS: PRENATAL VITAMINS W/ FOLIC ACID TABLET (FP) PO SCH (10:06)
[2021-04-29] MEDS: amLODIPine BESYLATE 10 MG TABLET (FP) PO SCH (10:06)
[2021-04-29] MEDS: LIDOCAINE 5% TOPICAL PATCH TP SCH (10:08)
[2021-04-29] MEDS: NICOTINE 14 MG/24 HOURS TOPICAL PATCH TD SCH (10:08)
[2021-04-29 16:57] LABS: HEMATOCRIT 40.3 % (35.4-49); HEMOGLOBIN 13.3 GM/dL (11.7-16.9); MCH 32.7 pg (25.7-33.7); MEAN CELL VOLUME 99.2 fl (80-96); MEAN PLT VOLUME 11.1 fl (7.5-11.1); PLATELET COUNT 150 10^3/uL (134-434); RBC 4.06 M/mm3 (4.00-5.60); RDW 13.7 % (11.9-15.9)
[2021-04-29 17:35] LABS: ALBUMIN 3.1 g/dl (3.4-5.0); CALCIUM 8.4 mg/dL (8.5-10.1)
[2021-04-29 17:36] LABS: BLOOD UREA NITROGEN 15.5 mg/dL (7-18)
[2021-04-29 17:39] LABS: CREATININE 1.1 mg/dL (0.55-1.3)
[2021-04-29 17:40] LABS: BILIRUBIN,TOTAL 0.3 mg/dL (0.2-1); TOT PROT 7.1 g/dl (6.4-8.2)
[2021-04-29] MEDS ORDERED: LIDOCAINE PATCH REMOVAL MC SCH (22:00)
[2021-04-29] MEDS: traZODone HCL 50 MG TABLET (FP) PO SCH (22:39)
[2021-04-29] MEDS: THIAMINE HCL 100 MG TABLET (FP) PO SCH (22:39)
[2021-04-29] MEDS: MELATONIN 5 MG TABLETS PO SCH (22:41)
[2021-04-30] MEDS ORDERED: LORazepam 0.5 MG TABLET PO ONE (05:00)
[2021-04-30] MEDS: NICOTINE 14 MG/24 HOURS TOPICAL PATCH TD SCH (09:14)
[2021-04-30] MEDS: PRENATAL VITAMINS W/ FOLIC ACID TABLET (FP) PO SCH (09:14)
[2021-04-30] MEDS: amLODIPine BESYLATE 10 MG TABLET (FP) PO SCH (09:14)
[2021-04-30] MEDS: LIDOCAINE 5% TOPICAL PATCH TP SCH (09:15)
[2021-04-30 09:16] VITALS: BP 113/68; PULSE 56; TEMP 97.7
== END 2021-04-30 09:49 | disposition home or self-care (01) | DRG 897 ==
LOC: YASAS 13:24 → Y6N 04-27 10:59
PROVIDERS: ADMIT Allergy & Immunology; ATTEND Allergy & Immunology
PROC: HZ2ZZZZ Detoxification Services for Substance Abuse Treatment (ICD-10-PCS; principal; 2021-04-27)
DX: F10.230 Alcohol dependence with withdrawal, uncomplicated (principal); F14.20 Cocaine dependence, uncomplicated; F17.210 Nicotine dependence, cigarettes, uncomplicated; F19.24 Other psychoactive substance dependence with psychoactive substance-induced mood disorder; I10 Essential (primary) hypertension; N40.0 Benign prostatic hyperplasia without lower urinary tract symptoms; B18.2 Chronic viral hepatitis C; K70.30 Alcoholic cirrhosis of liver without ascites; R00.1 Bradycardia, unspecified; N39.41 Urge incontinence; Z56.0 Unemployment, unspecified
CPT/HCPCS: 36415; 80053; 85027; 86780; 93005; 93010; C9803; U0003; U0005

== ENCOUNTER 2021-05-16 08:12 | Inpatient (IN) | payer OTHER ==
[2021-05-16 09:17] VITALS: BMI 22.4
[2021-05-16] MEDS ORDERED: BISMUTH SUBSALICYLATE 262 MG/15 ML BTL PO PRN (12:46)
[2021-05-16] MEDS ORDERED: IBUPROFEN 400 MG TABLET (FP) PO PRN (12:46)
[2021-05-16] MEDS ORDERED: MAGNESIUM CITRATE 300 ML BOTTLE PO PRN (12:46)
[2021-05-16] MEDS ORDERED: NICOTINE POLACRILEX 2 MG GUM BUC PRN (12:46)
[2021-05-16] MEDS ORDERED: MENTHOL/PHENOL 1 EACH UD MM PRN (12:46)
[2021-05-16] MEDS ORDERED: LORazepam 1 MG TABLET PO PRN (12:46)
[2021-05-16] MEDS ORDERED: METHOCARBAMOL 500 MG TABLET PO PRN (12:46)
[2021-05-16] MEDS ORDERED: MAG HYDROX/AL HYDROX/SIMETH 30 ML UNIT-DOSE CUP PO PRN (12:46)
[2021-05-16] MEDS ORDERED: traZODone HCL 100 MG TABLET (FP) PO PRN (12:46)
[2021-05-16] MEDS ORDERED: ONDANSETRON *ODT* 4 MG TABLET SL PRN (12:46)
[2021-05-16] MEDS ORDERED: MAGNESIUM HYDROX 2400MG/30ML ORAL SUSPENSION 30 ML CUP PO PRN (12:46)
[2021-05-16] MEDS ORDERED: ACETAMINOPHEN 325 MG TABLET (FP) PO PRN (12:46)
[2021-05-16] MEDS: NICOTINE 14 MG/24 HOURS TOPICAL PATCH TD SCH (13:35)
[2021-05-16] MEDS: hydrOXYzine PAMOATE 25 MG CAPSULE (FP) PO SCH ×3 (13:35→23:02)
[2021-05-16 15:26] LABS: HEMATOCRIT 38.6 % (35.4-49); HEMOGLOBIN 13.1 GM/dL (11.7-16.9); MCH 33.7 pg (25.7-33.7); MCHC 33.9 g/dl (32.0-35.9); MEAN CELL VOLUME 99.3 fl (80-96); MEAN PLT VOLUME 10.2 fl (7.5-11.1); PLATELET COUNT 143 10^3/uL (134-434); RBC 3.89 M/mm3 (4.00-5.60); RDW 14.2 % (11.9-15.9); WHITE BLOOD COUNT 5.2 K/mm3 (4.0-10.0)
[2021-05-16 15:34] LABS: BLOOD UREA NITROGEN 16.9 mg/dL (7-18); CALCIUM 8.7 mg/dL (8.5-10.1)
[2021-05-16 15:35] LABS: ALBUMIN 3.5 g/dl (3.4-5.0)
[2021-05-16 15:39] LABS: CREATININE 1.3 mg/dL (0.55-1.3)
[2021-05-16 15:41] LABS: BILIRUBIN,TOTAL 0.3 mg/dL (0.2-1); TOT PROT 7.8 g/dl (6.4-8.2)
[2021-05-16] MEDS: LORazepam 2 MG TABLET PO SCH ×2 (17:42→23:02)
[2021-05-16] MEDS ORDERED: MELATONIN 5 MG TABLETS PO SCH (22:00)
[2021-05-16] MEDS: THIAMINE HCL 100 MG TABLET (FP) PO SCH (23:03)
[2021-05-17] MEDS: hydrOXYzine PAMOATE 25 MG CAPSULE (FP) PO SCH (05:09)
[2021-05-17] MEDS: LORazepam 2 MG TABLET PO SCH ×4 (05:09→22:33)
[2021-05-17] MEDS ORDERED: MELATONIN 5 MG TABLETS PO PRN (09:40)
[2021-05-17] MEDS: PRENATAL VITAMINS W/ FOLIC ACID TABLET (FP) PO SCH (10:17)
[2021-05-17] MEDS: amLODIPine BESYLATE 10 MG TABLET (FP) PO SCH (10:18)
[2021-05-17] MEDS: FOLIC ACID 1 MG TABLET (FP) PO SCH (10:18)
[2021-05-17] MEDS: NICOTINE 14 MG/24 HOURS TOPICAL PATCH TD SCH (10:18)
[2021-05-17] MEDS: THIAMINE HCL 100 MG TABLET (FP) PO SCH (22:33)
[2021-05-17] MEDS: traZODone HCL 50 MG TABLET (FP) PO SCH (22:35)
[2021-05-18] MEDS: LORazepam 1 MG TABLET PO SCH ×4 (05:45→22:08)
[2021-05-18] MEDS: PRENATAL VITAMINS W/ FOLIC ACID TABLET (FP) PO SCH (10:19)
[2021-05-18] MEDS: NICOTINE 14 MG/24 HOURS TOPICAL PATCH TD SCH (10:19)
[2021-05-18] MEDS: FOLIC ACID 1 MG TABLET (FP) PO SCH (10:19)
[2021-05-18] MEDS: amLODIPine BESYLATE 10 MG TABLET (FP) PO SCH (10:19)
[2021-05-18] MEDS: THIAMINE HCL 100 MG TABLET (FP) PO SCH (22:08)
[2021-05-18] MEDS: traZODone HCL 50 MG TABLET (FP) PO SCH (22:09)
[2021-05-19] MEDS ORDERED: LORazepam 0.5 MG TABLET PO PRN
[2021-05-19] MEDS: LORazepam 0.5 MG TABLET PO SCH ×4 (05:53→22:17)
[2021-05-19] MEDS: ACETAMINOPHEN 325 MG TABLET (FP) PO PRN ×2 (05:54→22:18)
[2021-05-19] MEDS: amLODIPine BESYLATE 10 MG TABLET (FP) PO SCH (10:14)
[2021-05-19] MEDS: FOLIC ACID 1 MG TABLET (FP) PO SCH (10:14)
[2021-05-19] MEDS: PRENATAL VITAMINS W/ FOLIC ACID TABLET (FP) PO SCH (10:16)
[2021-05-19] MEDS: NICOTINE 14 MG/24 HOURS TOPICAL PATCH TD SCH (10:18)
[2021-05-19] MEDS: THIAMINE HCL 100 MG TABLET (FP) PO SCH (22:17)
[2021-05-19] MEDS: traZODone HCL 50 MG TABLET (FP) PO SCH (22:17)
[2021-05-20] MEDS ORDERED: LORazepam 0.5 MG TABLET PO ONE (05:00)
[2021-05-20] MEDS: NICOTINE 14 MG/24 HOURS TOPICAL PATCH TD SCH (10:03)
[2021-05-20] MEDS: amLODIPine BESYLATE 10 MG TABLET (FP) PO SCH (10:03)
[2021-05-20] MEDS: PRENATAL VITAMINS W/ FOLIC ACID TABLET (FP) PO SCH (10:03)
[2021-05-20] MEDS: FOLIC ACID 1 MG TABLET (FP) PO SCH (10:03)
[2021-05-20 12:51] VITALS: BP 112/67; PULSE 63; TEMP 99.3
== END 2021-05-20 13:10 | disposition other institution (70) | DRG 897 ==
LOC: YASAS 08:12 → Y6N 12:58
PROVIDERS: ADMIT Allergy & Immunology; ATTEND Allergy & Immunology
PROC: HZ2ZZZZ Detoxification Services for Substance Abuse Treatment (ICD-10-PCS; principal; 2021-05-16)
DX: F10.230 Alcohol dependence with withdrawal, uncomplicated (principal); F14.20 Cocaine dependence, uncomplicated; F16.10 Hallucinogen abuse, uncomplicated; F17.210 Nicotine dependence, cigarettes, uncomplicated; F10.282 Alcohol dependence with alcohol-induced sleep disorder; F10.24 Alcohol dependence with alcohol-induced mood disorder; F34.1 Dysthymic disorder; B18.2 Chronic viral hepatitis C; I10 Essential (primary) hypertension; K70.30 Alcoholic cirrhosis of liver without ascites; J45.909 Unspecified asthma, uncomplicated; R51.9 Headache, unspecified; N40.0 Benign prostatic hyperplasia without lower urinary tract symptoms; R53.1 Weakness; R47.1 Dysarthria and anarthria; R26.89 Other abnormalities of gait and mobility; Z86.73 Personal history of transient ischemic attack (TIA), and cerebral infarction without residual deficits
CPT/HCPCS: 36415; 80053; 85027; 86780; 93005; 93010; C9803; U0003; U0005

== ENCOUNTER 2021-05-16 19:32 | Emergency (ER) | payer OTHER ==
[2021-05-16 19:47] VITALS: BMI 24.1
[2021-05-16] MEDS ORDERED: METOCLOPRAMIDE HCL INJECTION 10 MG/2 ML VIAL IVPUSH ONE (20:21)
[2021-05-16] MEDS ORDERED: FOLIC ACID INJECTION - 1 MG, THIAMINE HCL 100 MG, MULTIVIT INJECTION ADULT 10 ML in SOD... IVPB ONE (20:23)
[2021-05-16] MEDS ORDERED: METOCLOPRAMIDE HCL INJECTION 10 MG/2 ML VIAL ONE (20:30)
[2021-05-16 20:36] LABS: BASO % 0.8 % (0-2.0); HEMATOCRIT 35.9 % (35.4-49); HEMOGLOBIN 12.2 GM/dL (11.7-16.9); LYMPH % 42.6 % (8-40); MCH 33.3 pg (25.7-33.7); MEAN PLT VOLUME 9.7 fl (7.5-11.1); MONO % 14.3 % (3.8-10.2); NEUT % 40.3 % (42.8-82.8); PLATELET COUNT 127 10^3/uL (134-434); RBC 3.66 M/mm3 (4.00-5.60); RDW 13.9 % (11.9-15.9); WHITE BLOOD COUNT 5.3 K/mm3 (4.0-10.0)
[2021-05-16 20:45] LABS: INR 1.14 (0.83-1.09)
[2021-05-16 20:48] LABS: ACTIVATED PTT 30.6 SECONDS (25.2-36.5)
[2021-05-16 20:56] LABS: CALCIUM 8.7 mg/dL (8.5-10.1)
[2021-05-16 20:57] LABS: ALBUMIN 3.1 g/dl (3.4-5.0); BLOOD UREA NITROGEN 20.6 mg/dL (7-18)
[2021-05-16 20:58] LABS: MAGNESIUM 2.4 mg/dL (1.8-2.4)
[2021-05-16 21:00] LABS: CREATININE 1.4 mg/dL (0.55-1.3)
[2021-05-16 21:02] LABS: BILIRUBIN,TOTAL 0.2 mg/dL (0.2-1)
[2021-05-16] MEDS ORDERED: FLUORESCEIN NA 1 EA STRIP OD ONE (21:45)
[2021-05-16] MEDS ORDERED: TETRACAINE 0.5% OPHTH SOLN 2 ML BOTTLE ONE (21:49)
[2021-05-16] MEDS ORDERED: FLUORESCEIN NA 1 EA STRIP ONE (21:49)
[2021-05-16] MEDS ORDERED: SODIUM CHLORIDE 1,000 ML IV STA (22:04)
[2021-05-17 01:33] VITALS: BP 106/69; PULSE 51; TEMP 97.6
== END 2021-05-17 04:23 | disposition home or self-care (01) ==
LOC: JER 19:32
DX: R51.9 Headache, unspecified (principal)
CPT/HCPCS: 36415; 70450-TC; 72125-TC; 76512; 80053; 82962; 83735; 85025; 85610; 85730; 93005; 93010; 99285-25

== ENCOUNTER 2021-05-20 12:53 | Inpatient (IN) | payer OTHER ==
[2021-05-20 13:34] VITALS: TEMP 97.1
[2021-05-20] MEDS ORDERED: MAGNESIUM HYDROX 2400MG/30ML ORAL SUSPENSION 30 ML CUP PO PRN (14:53)
[2021-05-20] MEDS ORDERED: LOPERAMIDE HCL 2 MG CAPSULE PO PRN (14:53)
[2021-05-20] MEDS ORDERED: guaiFENesin 200 MG/10 ML 10 ML UNIT-DOSE CUPS PO PRN (14:53)
[2021-05-20] MEDS ORDERED: MAGNESIUM CITRATE 300 ML BOTTLE PO PRN (14:53)
[2021-05-20] MEDS ORDERED: MAG HYDROX/AL HYDROX/SIMETH 30 ML UNIT-DOSE CUP PO PRN (14:53)
[2021-05-20] MEDS ORDERED: NICOTINE POLACRILEX 2 MG GUM BUC PRN (14:53)
[2021-05-20] MEDS ORDERED: P-EPHED 60MG/TRIPROLIDI 2.5MG TABLET PO PRN (14:53)
[2021-05-20] MEDS: hydrOXYzine PAMOATE 25 MG CAPSULE (FP) PO SCH ×3 (18:08→21:49)
[2021-05-20] MEDS: THIAMINE HCL 100 MG TABLET (FP) PO SCH (21:47)
[2021-05-20] MEDS: MELATONIN 5 MG TABLETS PO SCH (21:47)
[2021-05-20] MEDS: traZODone HCL 50 MG TABLET (FP) PO SCH (21:49)
[2021-05-21] MEDS: hydrOXYzine PAMOATE 25 MG CAPSULE (FP) PO SCH ×5 (06:13→21:15)
[2021-05-21] MEDS: PRENATAL VITAMINS W/ FOLIC ACID TABLET (FP) PO SCH (10:13)
[2021-05-21] MEDS: amLODIPine BESYLATE 10 MG TABLET (FP) PO SCH (10:14)
[2021-05-21] MEDS: FOLIC ACID 1 MG TABLET (FP) PO SCH (10:14)
[2021-05-21] MEDS: NICOTINE 14 MG/24 HOURS TOPICAL PATCH TD SCH (10:14)
[2021-05-21] MEDS: ESCITALOPRAM OXALATE 10 MG TABLET PO SCH (10:15)
[2021-05-21] MEDS: IBUPROFEN 400 MG TABLET (FP) PO PRN (16:40)
[2021-05-21] MEDS: MELATONIN 5 MG TABLETS PO SCH (21:15)
[2021-05-21] MEDS: traZODone HCL 50 MG TABLET (FP) PO SCH (21:15)
[2021-05-21] MEDS: ACETAMINOPHEN 325 MG TABLET (FP) PO PRN (21:15)
[2021-05-21] MEDS: THIAMINE HCL 100 MG TABLET (FP) PO SCH (21:15)
[2021-05-22] MEDS: IBUPROFEN 400 MG TABLET (FP) PO PRN (06:20)
[2021-05-22] MEDS: hydrOXYzine PAMOATE 25 MG CAPSULE (FP) PO SCH ×5 (06:20→21:09)
[2021-05-22] MEDS ORDERED: PT OWN MED DRAWER 7, Y5N ONE ×2 (08:04→09:47)
[2021-05-22] MEDS: amLODIPine BESYLATE 10 MG TABLET (FP) PO SCH (09:45)
[2021-05-22] MEDS: PRENATAL VITAMINS W/ FOLIC ACID TABLET (FP) PO SCH (09:45)
[2021-05-22] MEDS: ESCITALOPRAM OXALATE 10 MG TABLET PO SCH (09:45)
[2021-05-22] MEDS: NICOTINE 14 MG/24 HOURS TOPICAL PATCH TD SCH (09:46)
[2021-05-22] MEDS: ACETAMINOPHEN 325 MG TABLET (FP) PO PRN (09:47)
[2021-05-22] MEDS: FOLIC ACID 1 MG TABLET (FP) PO SCH (11:36)
[2021-05-22] MEDS: LIDOCAINE 5% TOPICAL PATCH TP SCH (13:36)
[2021-05-22] MEDS: traZODone HCL 50 MG TABLET (FP) PO SCH (21:09)
[2021-05-22] MEDS: MELATONIN 5 MG TABLETS PO SCH (21:09)
[2021-05-22] MEDS: LIDOCAINE PATCH REMOVAL MC SCH (21:09)
[2021-05-22] MEDS: THIAMINE HCL 100 MG TABLET (FP) PO SCH (21:09)
[2021-05-23] MEDS: hydrOXYzine PAMOATE 25 MG CAPSULE (FP) PO SCH ×5 (06:24→22:12)
[2021-05-23] MEDS: ESCITALOPRAM OXALATE 10 MG TABLET PO SCH (09:40)
[2021-05-23] MEDS: LIDOCAINE 5% TOPICAL PATCH TP SCH (09:40)
[2021-05-23] MEDS: FOLIC ACID 1 MG TABLET (FP) PO SCH (09:40)
[2021-05-23] MEDS: NICOTINE 14 MG/24 HOURS TOPICAL PATCH TD SCH (09:41)
[2021-05-23] MEDS: PRENATAL VITAMINS W/ FOLIC ACID TABLET (FP) PO SCH (09:41)
[2021-05-23] MEDS: amLODIPine BESYLATE 10 MG TABLET (FP) PO SCH (09:41)
[2021-05-23] MEDS: CARBAMIDE PEROXIDE 6.5% OTIC 15 ML BOTTLE AD SCH ×2 (12:50→22:12)
[2021-05-23] MEDS: traZODone HCL 50 MG TABLET (FP) PO SCH (22:10)
[2021-05-23] MEDS: THIAMINE HCL 100 MG TABLET (FP) PO SCH (22:10)
[2021-05-23] MEDS: LIDOCAINE PATCH REMOVAL MC SCH (22:11)
[2021-05-23] MEDS: MELATONIN 5 MG TABLETS PO SCH (22:11)
[2021-05-24] MEDS: hydrOXYzine PAMOATE 25 MG CAPSULE (FP) PO SCH (06:17)
[2021-05-24 08:41] VITALS: BP 134/80; PULSE 54
[2021-05-24] MEDS: amLODIPine BESYLATE 10 MG TABLET (FP) PO SCH (09:03)
[2021-05-24] MEDS: ESCITALOPRAM OXALATE 10 MG TABLET PO SCH (09:04)
[2021-05-24] MEDS: PRENATAL VITAMINS W/ FOLIC ACID TABLET (FP) PO SCH (09:04)
[2021-05-24] MEDS: FOLIC ACID 1 MG TABLET (FP) PO SCH (09:04)
[2021-05-24] MEDS: CARBAMIDE PEROXIDE 6.5% OTIC 15 ML BOTTLE AD SCH (09:05)
== END 2021-05-24 09:07 | disposition home or self-care (01) | DRG 895 ==
LOC: YASAS 12:53 → Y3E 12:54
PROVIDERS: ADMIT Allergy & Immunology; ATTEND Allergy & Immunology
PROC: HZ40ZZZ Group Counseling for Substance Abuse Treatment, Cognitive (ICD-10-PCS; principal; 2021-05-20)
DX: F10.20 Alcohol dependence, uncomplicated (principal); F14.20 Cocaine dependence, uncomplicated; F17.210 Nicotine dependence, cigarettes, uncomplicated; F34.1 Dysthymic disorder; I10 Essential (primary) hypertension; R25.1 Tremor, unspecified; K70.30 Alcoholic cirrhosis of liver without ascites; N40.0 Benign prostatic hyperplasia without lower urinary tract symptoms; Z91.5 Personal history of self-harm; Z86.19 Personal history of other infectious and parasitic diseases